=== PATIENT | male | born 1950 | race Caucasian/White ===

== ENCOUNTER → 2020-10-18 | Outpatient (CLI) | payer MEDICARE ==
[~2020-10-18] MED LIST: OMEP20TA62 PO; OXYC1TAB14 PO; TEST100V2 INJ; TIZA4CAP PO
== END | disposition home or self-care (01) ==
LOC: STAR 07:20
PROVIDERS: ATTEND Thoracic Surgery (Cardiothoracic Vascular Surgery)
DX: Z01.818 Encounter for other preprocedural examination (principal); K44.9 Diaphragmatic hernia without obstruction or gangrene; Z20.822 Contact with and (suspected) exposure to COVID-19
CPT/HCPCS: 93005; U0003; U0005

== ENCOUNTER 2020-10-24 06:34 | Day surgery (SDC) | payer MEDICARE ==
[~2020-10-24] VITALS: Ht 185.4 cm; Wt 91.0 kg
[2020-10-24] MEDS ORDERED: BUPIVACAINE/PF 0.5% ONE (06:45)
[2020-10-24] MEDS ORDERED: EPINEPHRINE 1 MG/ML, 1ML ONE (06:46)
[2020-10-24 06:58] VITALS: BP 177/82
[2020-10-24] MEDS ORDERED: CHLORHEXIDINE 15 ML UDC PO ONE (07:00)
[2020-10-24] MEDS ORDERED: LACTATED RINGERS 1,000 ML IV SCH ×2 (07:00→09:30)
[2020-10-24] MEDS ORDERED: MIDAZOLAM 1 MG/ML, 2ML ONE (07:18)
[2020-10-24] MEDS ORDERED: FENTANYL PF 250 MCG/5ML ONE (07:19)
[2020-10-24] MEDS ORDERED: LORazepam 2 MG/ML, 1ML IVPush PRN (07:30)
[2020-10-24] MEDS ORDERED: PROMETHAZINE 25 MG/ML, 1ML IVPush PRN (07:30)
[2020-10-24] MEDS ORDERED: OXYcodone 5 MG/5 ML ORAL.SOL UDC PO PRN ×2 (07:30→09:30)
[2020-10-24] MEDS ORDERED: HYDROmorphone 1 MG/ML, 1ML INJ IVPush PRN (07:30)
[2020-10-24] MEDS ORDERED: METHOCARBAMOL 1,000 MG in DEXTROSE 5% 100 ML IV PRN (07:30)
[2020-10-24] MEDS ORDERED: ACETAMINOPHEN 325 MG TABLET PO PRN (07:30)
[2020-10-24] MEDS ORDERED: ALBUTEROL SULFATE 2.5 MG/3 ML NPPB PRN (07:30)
[2020-10-24] MEDS ORDERED: FENTANYL PF 100 MCG/2ML IV PRN (07:30)
[2020-10-24] MEDS ORDERED: MEPERIDINE/PF 25MG/0.5ML IVPush PRN (07:30)
[2020-10-24] MEDS ORDERED: KETAMINE 50 MG/ML, 10ML ONE (07:31)
[2020-10-24] MEDS ORDERED: DEXAMETHASONE 4 MG/ML, 1ML ONE (07:37)
[2020-10-24] MEDS ORDERED: BUPIVACAINE/PF-EPI 0.5% 1:200K INFIL ONE (07:49)
[2020-10-24] MEDS ORDERED: HYDROmorphone 1 MG/ML, 1ML INJ ONE ×2 (08:07→08:48)
[2020-10-24] MEDS ORDERED: LIDOCAINE-MPF 2% ,5ML ONE (08:11)
[2020-10-24] MEDS ORDERED: ONDANSETRON 2MG/ML, 2ML ONE (08:56)
[2020-10-24] MEDS ORDERED: NEOSTIGMINE 1 MG/ML, 10ML ONE (08:56)
[2020-10-24] MEDS ORDERED: ROCURONIUM 10MG/ML,5ML ONE (08:56)
[2020-10-24] MEDS ORDERED: GLYCOPYRROLATE 0.2MG/1ML, 5ML ONE (08:56)
[2020-10-24] MEDS ORDERED: CEFAZOLIN 1,000 MG ONE (08:56)
[2020-10-24] MEDS ORDERED: PROPOFOL 10 MG/ML, 20ML ONE (08:56)
[2020-10-24] MEDS ORDERED: FENTANYL PF 100 MCG/2ML ONE (09:02)
[2020-10-24] MEDS ORDERED: LABETALOL 5MG/ML, 20ML ONE (09:13)
[2020-10-24] MEDS: LABETALOL 5MG/ML, 20ML IV PRN ×3 (09:15→09:33)
[2020-10-24] MEDS ORDERED: hydrALAzine 20 MG/ML, 1ML IV PRN (09:30)
[2020-10-24] MEDS ORDERED: LORazepam 2 MG/ML, 1ML IV PRN (09:30)
[2020-10-24] MEDS ORDERED: HYDROmorphone 1 MG/ML, 1ML INJ IV PRN (09:30)
[2020-10-24] MEDS ORDERED: DIPHENHYDRAMINE 50 MG/ML, 1ML IV PRN (09:30)
[2020-10-24] MEDS ORDERED: PROMETHAZINE 12.5 MG SUPP PR PRN (09:30)
[2020-10-24] MEDS ORDERED: FAMOTIDINE 20 MG/2 ML IV SCH (09:30)
[2020-10-24] MEDS ORDERED: KETOROLAC 30 MG/1 ML IV PRN ×2 (09:30→15:30)
[2020-10-24] MEDS ORDERED: ONDANSETRON 2MG/ML, 2ML IVPush PRN (09:30)
[2020-10-24] MEDS ORDERED: PROMETHAZINE 25 MG/ML, 1ML IM PRN (09:30)
[2020-10-24] MEDS ORDERED: ENALAPRILAT 1.25 MG/ML, 2ML IV PRN (09:30)
[2020-10-24] MEDS ORDERED: KETOROLAC 30 MG/1 ML ONE (09:38)
[2020-10-24] MEDS ORDERED: OXYcodone 5 MG/5 ML ORAL.SOL UDC ONE (09:39)
[2020-10-24] MEDS ORDERED: hydrALAzine 20 MG/ML, 1ML ONE ×2 (09:50→10:25)
[2020-10-24] MEDS: hydrALAzine 20 MG/ML, 1ML IV PRN ×2 (09:52→10:30)
[2020-10-24] MEDS ORDERED: ACETAMINOPHEN 650 MG/20.3 ML UDC ONE (10:14)
[2020-10-25] MEDS ORDERED: ENOXAPARIN 40 MG/0.4 ML SQ SCH (09:00)
== END 2020-10-24 13:15 | disposition home or self-care (01) ==
LOC: OUT 06:34
PROVIDERS: ATTEND Thoracic Surgery (Cardiothoracic Vascular Surgery)
DX: K21.9 Gastro-esophageal reflux disease without esophagitis (principal); K44.9 Diaphragmatic hernia without obstruction or gangrene; K22.70 Barrett's esophagus without dysplasia; Z79.891 Long term (current) use of opiate analgesic; Z79.899 Other long term (current) drug therapy; Z80.0 Family history of malignant neoplasm of digestive organs; Z82.3 Family history of stroke
CPT/HCPCS: 43282; C1781; J0171; J0360; J0690; J1100; J1170; J1885; J2250; J2405; J2704; J2710; J2800; J3010; J7120